=== PATIENT | female | born 1995 | race Two or more races ===

== ENCOUNTER 2020-10-03 08:07 | Inpatient (IN) ==
[2020-10-03] MEDS ORDERED: LACTATED RINGERS 1,000 ML IV ONE (09:02)
[2020-10-03] MEDS ORDERED: FAMOTIDINE 20 MG/2 ML VIAL IV ONE (09:19)
[2020-10-03] MEDS ORDERED: ceFAZolin 2,000 MG in PREMIX 1 EACH IV ONE (09:19)
[2020-10-03] MEDS ORDERED: CITRIC ACID/SODIUM CITRATE 30 ML UDCUP PO ONE (09:19)
[2020-10-03] MEDS ORDERED: OXYTOCIN/LR 20 UNIT/1,000 ML BAG IV ONE ×2 (09:21→13:27)
[2020-10-03] MEDS ORDERED: OXYTOCIN/LR 30 UNIT/1,000 ML BAG IV ONE (09:21)
[2020-10-03] MEDS ORDERED: OXYTOCIN 10 UNIT/ML VIAL IM ONE (09:21)
[2020-10-03] MEDS ORDERED: LACTATED RINGERS 1,000 ML IV SCH ×2 (09:30→13:30)
[2020-10-03 09:53] LABS: Basophils % 0.2 % (0.0-0.8); Eosinophils # 0.1 10*3/uL (0.0-0.87); Eosinophils % 1.4 % (0.00-10.9); Hematocrit 31.2 VOL% (35.7-47.0); Hemoglobin 9.8 GM/DL (12.0-16.0); Immature Granulocytes % 0.7 %; Immature Granulocytes Absolute 0.06 #; Lymphocytes # 1.7 10*3/uL (1.4-4.0); Lymphocytes % 18.6 % (21.3-54.2); Mean Corpuscular HGB Conc 31.4 GM/DL (32-36); Mean Corpuscular Volume 91.5 FL (87-102); Mean Platelet Volume 9.1 FL (9.6-12.0); Monocytes % 8.2 % (1.7-12.7); Neutrophils % 70.9 % (38.7-73.9); Platelet Count 245 T/CUMM (130-400); Red Blood Count 3.41 MC/CUMM (3.8-5.5); Red Cell Distribution Width 13.6 % (9.3-17.3); White Blood Count 9.2 T/CUMM (4-12)
[2020-10-03 10:10] LABS: Alanine Aminotransferase 18 U/L (13-56); Albumin 2.2 G/DL (3.4-5.0); Alkaline Phosphatase 93 U/L (45-117); Aspartate Amino Transferase 16 U/L (0-37); Bilirubin,Total < 0.39 MG/DL (0.2-1.0); Blood Urea Nitrogen 6 MG/DL (7-18); Calcium 7.8 MG/DL (8.5-10.1); Carbon Dioxide 24 MMOL/L (21-32); Estimated Glom Filtration Rate 142 ML/MIN; Glucose 87 MG/DL (74-106); Osmolality,Calculated 277.3 MOS/KG (273-304); Potassium 3.7 MMOL/L (3.5-5.1); Sodium 141 MMOL/L (136-145); Total Protein 5.8 G/DL (6.4-8.2)
[2020-10-03] MEDS ORDERED: BUPIVACAINE SPINAL 0.75% 2 ML AMP SPINAL ONE (12:12)
[2020-10-03] MEDS ORDERED: ONDANSETRON 4 MG/2 ML VIAL ONE (12:13)
[2020-10-03] MEDS ORDERED: PHENYLEPHRINE 1 MG/10 ML SYRINGE IV ONE (12:13)
[2020-10-03 12:58] LABS: Cord Arterial Blood HCO3 21.7 MMOL/L
[2020-10-03 12:59] LABS: Cord Venous Blood HCO3 25.9 MMOL/L; Cord Venous Blood PCO2 48.2 MMHG; Cord Venous Blood PO2 20.5 MMHG
[2020-10-03 13:17] LABS: Bilirubin,Urine Negative (Negative); Blood, Urine Negative (Negative); Glucose,Urine (UA) Negative (Negative); Ketones,Urine Negative (Negative); Nitrite,Urine Negative (Negative); Protein,Urine Negative; Renal Epithelial Cells,Urine Occasional /HPF (<1); Urine Appearance CLEAR (Clear); Urine Color Straw (Yellow); Urine Specific Gravity 1.006 (1.001-1.035); Urine Urobilinogen < 2.0 EU/DL (0.2-1.0); WBC,Urine 3 /HPF (0-6)
[2020-10-03] MEDS ORDERED: SIMETHICONE CHEW 80 MG TABLET PO PRN (13:27)
[2020-10-03] MEDS ORDERED: RHO(D) IMMUNE GLOBULIN 300 MCG SYRINGE IM ONE (13:27)
[2020-10-03] MEDS ORDERED: ACETAMINOPHEN 325 MG TABLET PO PRN (13:27)
[2020-10-03] MEDS ORDERED: ONDANSETRON 4 MG/2 ML VIAL IV PRN (13:27)
[2020-10-03] MEDS ORDERED: KETOROLAC 30 MG/1 ML VIAL IV SCH (14:00)
[2020-10-03] MEDS ORDERED: ACETAMINOPHEN 500 MG TABLET PO SCH (14:00)
[2020-10-03] MEDS: KETOROLAC 30 MG/1 ML VIAL IV SCH (20:30)
[2020-10-03] MEDS: ACETAMINOPHEN 500 MG TABLET PO SCH (20:35)
[2020-10-03] MEDS: DOCUSATE SODIUM 100 MG CAPSULE PO SCH (21:00)
[2020-10-03 21:06] LABS: Basophils % 0.3 % (0.0-0.8); Eosinophils # 0.1 10*3/uL (0.0-0.87); Eosinophils % 0.7 % (0.00-10.9); Hematocrit 28.7 VOL% (35.7-47.0); Immature Granulocytes % 0.5 %; Immature Granulocytes Absolute 0.06 #; Lymphocytes # 1.8 10*3/uL (1.4-4.0); Lymphocytes % 16.1 % (21.3-54.2); Mean Corpuscular HGB Conc 31.4 GM/DL (32-36); Mean Corpuscular Volume 91.1 FL (87-102); Mean Platelet Volume 9.3 FL (9.6-12.0); Monocytes % 4.9 % (1.7-12.7); Neutrophils % 77.5 % (38.7-73.9); Platelet Count 214 T/CUMM (130-400); Red Blood Count 3.15 MC/CUMM (3.8-5.5); Red Cell Distribution Width 13.6 % (9.3-17.3); White Blood Count 11.4 T/CUMM (4-12)
[2020-10-04] MEDS: ACETAMINOPHEN 500 MG TABLET PO SCH ×2 (02:10→07:35)
[2020-10-04] MEDS: KETOROLAC 30 MG/1 ML VIAL IV SCH ×2 (02:11→07:37)
[2020-10-04 03:24] LABS: Basophils % 0.4 % (0.0-0.8); Eosinophils # 0.1 10*3/uL (0.0-0.87); Eosinophils % 1.1 % (0.00-10.9); Hematocrit 28.1 VOL% (35.7-47.0); Hemoglobin 9.1 GM/DL (12.0-16.0); Immature Granulocytes % 0.5 %; Immature Granulocytes Absolute 0.05 #; Lymphocytes % 21.3 % (21.3-54.2); Mean Corpuscular HGB Conc 32.4 GM/DL (32-36); Mean Corpuscular Volume 89.5 FL (87-102); Mean Platelet Volume 9.3 FL (9.6-12.0); Monocytes % 7.3 % (1.7-12.7); Neutrophils % 69.4 % (38.7-73.9); Platelet Count 209 T/CUMM (130-400); Red Blood Count 3.14 MC/CUMM (3.8-5.5); Red Cell Distribution Width 13.8 % (9.3-17.3); White Blood Count 9.2 T/CUMM (4-12)
[2020-10-04] MEDS: MAGNESIUM HYDROXIDE SUSP 30 ML UDCUP PO PRN ×2 (07:36→20:45)
[2020-10-04] MEDS: METOCLOPRAMIDE 10 MG TABLET PO SCH ×2 (07:36→16:19)
[2020-10-04] MEDS: DOCUSATE SODIUM 100 MG CAPSULE PO SCH ×3 (07:36→22:11)
[2020-10-04] MEDS: MULTIVITAMIN (PRENATAL) TABLET PO SCH (07:37)
[2020-10-04] MEDS: FERROUS SULFATE 325 MG TABLET PO SCH ×2 (07:37→20:44)
[2020-10-04] MEDS: IBUPROFEN 800 MG TABLET PO PRN (16:19)
[2020-10-05] MEDS: METOCLOPRAMIDE 10 MG TABLET PO SCH ×2 (00:10→08:01)
[2020-10-05] MEDS: IBUPROFEN 800 MG TABLET PO PRN (00:10)
[2020-10-05 07:32] VITALS: BP 109/70
[2020-10-05] MEDS: MAGNESIUM HYDROXIDE SUSP 30 ML UDCUP PO PRN (08:00)
[2020-10-05] MEDS: DOCUSATE SODIUM 100 MG CAPSULE PO SCH (08:00)
[2020-10-05] MEDS: FERROUS SULFATE 325 MG TABLET PO SCH (08:00)
[2020-10-05] MEDS: MULTIVITAMIN (PRENATAL) TABLET PO SCH (08:01)
[2020-10-05] MEDS ORDERED: MEASLES/MUMPS/RUBELLA VACCINE 0.5 ML VIAL SUBCUT ONE (11:34)
== END 2020-10-05 14:15 | disposition home or self-care (01) | DRG 540 ==
LOC: N.LDOUT 08:07 → N.LD 08:10 → N.OB 16:48
PROVIDERS: ADMIT Obstetrics & Gynecology; ATTEND Obstetrics & Gynecology
PROC: LDCSECT (ICD-10-PCS; 2020-10-03 11:25)